=== PATIENT | male | born 1945 | race Caucasian/White ===

== ENCOUNTER 2020-03-03 14:00 | Outpatient (CLI) | payer MEDICARE, OTHER, SELFPAY ==
--- NOTE | 2020-03-03 14:12 | XR_ITS ---
WS: [id number] KNEE LEFT TECHNIQUE: 3 views of the left knee CLINICAL INFORMATION: LEFT KNEE SPRAIN COMPARISON: None. FINDINGS: Mild degenerative arthritis left knee. Mild medial and lateral compartment narrowing. Hypertrophic pa tella. Moderate narrowing patellofemoral articulation. Mild soft tissue edema. XR/XR knee LT 3V* [id number] IMPRESSION: Mild tricompartmental arthritis.
== END 2020-03-03 14:01 | disposition home or self-care (01) ==
LOC: RADWPI 14:10
PROVIDERS: PCP Family Medicine; Visit Provider Family Medicine
DX: S83.92XA Sprain of unspecified site of left knee, initial encounter (principal); X58.XXXA Exposure to other specified factors, initial encounter; M13.862 Other specified arthritis, left knee
CPT/HCPCS: 73562

== ENCOUNTER 2021-10-08 16:57 | Emergency (ER) | payer MEDICARE, OTHER, SELFPAY ==
[2021-10-08 17:10] VITALS: BP 162/81; PULSE 92; RESP 16; TEMP 36.8; O2SAT 97; BMI 29.4
--- NOTE | 2021-10-08 17:16 | ED_ITS ---
HPI - Extremity Problem General: Chief complaint: Extremity Problem,Nontraumatic Stated complaint: possible spider bite Time Seen by Provider: 10/08/21 17:16 History of Present Illness: HPI Narrative: 76-year-old male patient comes in today for concerns of redness and swelling to the left elbow. Patient reports yesterday he had significant pain and discomfort to the elbow area. Today he has more swelling and redness surrounding it. Patient first thought he may have had a spider bite. Patient does have a history of gout. Patient denies diabetes. Patient appears well. Patient appears in mild pain. Review of Systems General: Reports: 10 or more systems reviewed and unremarkable except in HPI and below Musc: Reports: other (Left elbow redness and tenderness.) Physical Exam Const: COMMON NORMALS: no acute distress and patient oriented x3 GENERAL APPEARANCE: cooperative HENMT: COMMON NORMALS: normocephalic and Normal external nose present HEAD & SCALP: normal to inspection and normocephalic NOSE: Normal external nose present MOUTH: Normal oral and palatal mucosa present Eye: GENERAL EYE: appearance normal, both eyes and all related structures Neck/C-Spine: COMMON NORMALS: full ROM Lymph: LYMPHATIC: no lymphadenopathy noted Chest: COMMONS NORMALS: normal inspection of the chest Resp: COMMON NORMALS: normal respiratory effort EFFORT & INSPECTION: Yes able to speak in complete sentences Cardio: COMMON NORMALS: regular rate and regular rhythm RATE: regular rate RHYTHM: regular rhythm GI: COMMON NORMALS: non-tender Extremity: NARRATIVE EXTREMITY EXAM: Redness noted to the left elbow with minimal to no induration. Area is approximately 10 cm circular. Patient has g ood range of motion of the elbow. Redness is not encircled the whole elbow. Distal pulses and sensations are intact. Patient does have some fluid to the olecranon bursa. Neuro: COMMON NORMALS: patient oriented x3 and moves all extremities Psych: COMMON NORMALS: mental status grossly normal and cooperative Skin: COMMON NORMALS: no rashes or lesions noted GENERAL SKIN EXAM: no rashes or lesions noted Course Vital Signs: Vital signs: Vital Signs Temperature 98.3 F 10/08/21 17:10 Pulse Rate 92 10/08/21 17:18 Respiratory Rate 16 10/08/21 17:18 Blood Pressure 162/81 10/08/21 17:18 Pulse Oximetry 97 10/08/21 17:18 MDM - Extremity (Nontraumatic) MDM Narrative: Medical decision making narrative: Patient comes in today for complaints of redness and swelling to the left elbow. Patient did report some chills. Patient states that the symptoms were more painful yesterday but today he has noticed some more swelling and redness. Patient has good range of motion of the elbow. Distal pulses and sensation are intact without any signs of swelling distally. Differential diagnosis includes not limited to cellulitis, olecranon bursitis, gout. I think we should go ahead and treat the patient for cellulitis we will give him a dose of ceftriaxone IM and then 10 mg of Decadron to help with pain and inflammation. I have a suspicion for gout but I am concerned due to patient's chills and suspicion for infectious origin. I will go ahead and cover with colchicine burst of 1.8 mg today and patient may repeat it in 3 days as needed. Patient was instructed to hold his allopurinol for 3 days. Patient will be continued on cephalexin 500 mg 3 times a day for 7 days, and naproxen 500 twice a day for 7 days. Patient reported understanding of care plan and need for follow-up or return to the ER for worsening symptoms such as inability to move the joint, fever greater than 100.4, or new concerns. Discharge Plan Discharge Patient Disposition: Home Clinical Impression: Cellulitis Qualifiers: Site of cellulitis: extremity Site of cellulitis of extremity: upper extremity Laterality: left Qualified Code(s): L03.114 - Cellulitis of left upper limb Condition: Stable Prescriptions: New colchicine 0.6 mg tablet 1.8 mg PO ONCE Qty: 6 RF: 0 cephalexin 500 mg capsule 500 mg PO TID 7 Days Qty: 21 RF: 0 naproxen 500 mg tablet 500 mg PO BID Qty: 14 RF: 0 Discharge Orders: Discharge ED (Routine); Ordered 10/08/21 Ordered By: Kai Mcdonough Referrals: Jhonatan Hodge MD [Primary Care Provider] - Discharge Diet: Usual diet Discharge Activity: Increase activity as tolerated Patient Instructions: Cellulitis (ED), Opioid Safety Activity Restrictions/Additional Instructions: I am treating you for cellulitis of the elbow. This is caused by bacteria getting into the skin tissue causing redness and inflammation because of infection in the dermis. I am also concerned there may be a flare of gout, due to your history. I recommend holding allopurinol for 3 days. Take the colchicine 2 tablets when you have the prescription filled and then repeat 1 tablet an hour. You may repeat this dosing in 3 days if needed. Use the naproxen 500 mg twice a day for the next 7 days to help with pain and inflammation. Continue with cephalexin 500 mg, antibiotic, 3 times daily for the next 7 days. Make sure to drink plenty of water. Monitor site for worsening symptoms such as increased pain with joint movement, increased redness surrounding the joint, and fever getting greater than 100.4. Follow-up with primary care in 3 days for recheck. Return to the ER for worsening symptoms. I expect to see considerable improvement within the next 2 to 3 days. Coding Level of Care Code ED Corn Shucker for Amairani Fletcher
[2021-10-08 17:18] VITALS: BP 162/81; PULSE 92; RESP 16; O2SAT 97
[2021-10-08] MEDS: dexamethasone 10 mg/mL INJ IM (17:35)
[2021-10-08] MEDS: cefTRIAXone 1,000 MG in lidocaine 1% 2.1 ML 2.3 MG IM (17:39)
== END 2021-10-08 17:44 | disposition home or self-care (01) ==
PROVIDERS: Emergency Provider Nurse Practitioner Family; PCP Family Medicine
DX: L03.114 Cellulitis of left upper limb (principal)
CPT/HCPCS: 96372; 99283; J0696; J1100

== ENCOUNTER → 2022-05-10 16:25 | Outpatient (BNVA) | payer MEDICARE, OTHER, SELFPAY | PROVIDERS: PCP Family Medicine; Visit Provider Family Medicine | DX: R39.15 Urgency of urination (principal); Z00.00 Encounter for general adult medical examination without abnormal findings; M10.9 Gout, unspecified; N45.1 Epididymitis | CPT/HCPCS: 80053; 80061; 84153; 84550; 85025 ==

== ENCOUNTER → 2022-10-22 08:15 | Outpatient (BNVA) | payer MEDICARE, OTHER, SELFPAY | PROVIDERS: PCP Family Medicine; Visit Provider Family Medicine | DX: Z00.00 Encounter for general adult medical examination without abnormal findings (principal); E78.5 Hyperlipidemia, unspecified; N45.1 Epididymitis | CPT/HCPCS: 80053; 80061; 85025; G0103 ==

== ENCOUNTER → 2023-04-30 10:22 | Outpatient (BNVA) | payer MEDICARE, OTHER, SELFPAY | PROVIDERS: PCP Family Medicine; Visit Provider Family Medicine | DX: Z00.00 Encounter for general adult medical examination without abnormal findings (principal); R97.20 Elevated prostate specific antigen [PSA] | CPT/HCPCS: 84153 ==

== ENCOUNTER → 2023-07-11 11:27 | Outpatient (BNVA) | payer MEDICARE, OTHER, SELFPAY | PROVIDERS: PCP Family Medicine; Visit Provider Family Medicine | DX: R30.0 Dysuria (principal) | CPT/HCPCS: 81000 ==

== ENCOUNTER → 2023-07-31 16:21 | Outpatient (BNVA) | payer MEDICARE, OTHER, SELFPAY | PROVIDERS: PCP Family Medicine; Visit Provider Clinical Nurse Specialist Adult Health | DX: R82.71 Bacteriuria (principal); N40.0 Benign prostatic hyperplasia without lower urinary tract symptoms; R10.9 Unspecified abdominal pain | CPT/HCPCS: 81003; 87086 ==

== ENCOUNTER → 2023-10-21 09:05 | Outpatient (BNVA) | payer MEDICARE, OTHER, SELFPAY | PROVIDERS: PCP Family Medicine; Visit Provider Family Medicine | DX: N40.0 Benign prostatic hyperplasia without lower urinary tract symptoms (principal); R97.20 Elevated prostate specific antigen [PSA]; M10.9 Gout, unspecified; R73.9 Hyperglycemia, unspecified | CPT/HCPCS: 80053; 80061; 83036; 84153; 84550; 85025 ==

== ENCOUNTER → 2024-04-21 13:12 | Outpatient (BNVA) | payer MEDICARE, OTHER, SELFPAY | PROVIDERS: PCP Family Medicine; Visit Provider Family Medicine | DX: R97.20 Elevated prostate specific antigen [PSA] (principal) | CPT/HCPCS: 84153 ==

== ENCOUNTER 2024-05-06 08:04 | Outpatient (RCR) | payer MEDICARE, OTHER, SELFPAY | END 2024-05-17 23:59 | disposition home or self-care (01) | LOC: SPT 08:04 | PROVIDERS: PCP Family Medicine; Visit Provider Family Medicine | DX: M54.30 Sciatica, unspecified side (principal) | CPT/HCPCS: 97110 ==

== ENCOUNTER 2024-05-18 06:00 | Outpatient (RCR) | payer MEDICARE, OTHER, SELFPAY | END 2024-06-17 23:59 | disposition home or self-care (01) | LOC: SPT 06:00 | PROVIDERS: PCP Family Medicine; Visit Provider Family Medicine | DX: M54.30 Sciatica, unspecified side (principal) | CPT/HCPCS: 97110 ==

== ENCOUNTER 2024-06-18 06:00 | Outpatient (RCR) | payer MEDICARE, OTHER, SELFPAY | END 2024-07-18 23:59 | disposition home or self-care (01) | LOC: SPT 06:00 | PROVIDERS: PCP Family Medicine; Visit Provider Family Medicine | DX: M54.30 Sciatica, unspecified side (principal) | CPT/HCPCS: 97110 ==

== ENCOUNTER 2024-07-14 07:31 | Outpatient (CLI) | payer MEDICARE, OTHER, SELFPAY ==
--- NOTE | 2024-07-14 07:37 | XR_ITS ---
WS: [id number] Exam: XR pelvis 1-2V* [id number] Date/Time of Exam: 07/14/2024 7:46 AM Reason For Exam: back pain No fracture noted. Moderate DJD of both hips. Degenerative disc narrowing at L5-S1 with right-sided b ridging osteophytes. Normal soft tissues. XR/XR pelvis 1-2V* [id number] IMPRESSION: 1. Moderately advanced degenerative changes at the lumbosacral junction as note d above. Bilateral hip DJD. 2. No other significant finding.
--- NOTE | 2024-07-14 07:37 | XR_ITS ---
WS: [id number] Exam: XR hip RT 2-3V wo/w pel* [id number] Date/Time of Exam: 07/14/2024 7:45 AM Reason For Exam: hip pain No fracture or dislocation. Moderate degenerative change of the joint compartment. Normal soft tissue s. XR/XR hip RT 2-3V wo/w pel* [id number] IMPRESSION: 1. Moderate degenerative change. No fracture.
--- NOTE | 2024-07-14 07:37 | XR_ITS ---
WS: [id number] Exam: XR lumbar spine 2-3V* [id number] Date/Time of Exam: 07/14/2024 7:46 AM Reason For Exam: back pain No acute fracture noted. 1 cm anterolisthesis of L5 on S1. There is appears to be due to degenerative facet disease and possibly an L5 pars defect. Large osteophytes noted at L4-5 and L5-S1. Facet arthr opathy at all levels. Degenerative vacuum discs are noted at L4-5 and L5-S1. Very slight dextroscolio sis. XR/XR lumbar spine 2-3V* [id number] IMPRESSION: 1. 1 cm anterolisthesis of L5 on S1. This appears to be secondary to facet dege neration however an L5 pars defect may also be present. Oblique views and/or MR I of the lumbar spine should be considered for further work-up. 2. Advanced degenerative changes and spondylosis.
== END 2024-07-14 07:32 | disposition home or self-care (01) ==
PROVIDERS: PCP Family Medicine; Visit Provider Family Medicine
DX: M51.37 Other intervertebral disc degeneration, lumbosacral region (principal); M16.0 Bilateral primary osteoarthritis of hip; M47.816 Spondylosis without myelopathy or radiculopathy, lumbar region
CPT/HCPCS: 72100; 72170; 73502

== ENCOUNTER 2024-08-19 08:21 | Outpatient (CLI) | payer MEDICARE, OTHER, SELFPAY ==
--- NOTE | 2024-08-19 08:45 | MR_ITS ---
WS: [id number] MRI LUMBAR SPINE NONCONTRAST TECHNIQUE: Sagittal T1, T2 and STIR imaging. Axial T1 and T2 imaging. CLINICAL INFORMATION: chronic back pain COMPARISON: None. 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 Mild lumbar curve. No acute lili anderson fractures. L1-L2: Mild facet arthropathy. Spinal canal and foramen are patent. L2-L3: Mild annular bulging. Mild central canal stenosis. Impingement on the traversing LEFT L3 nerve root. Mild facet arthropathy. Mild bilateral foraminal narrowing. L3-L4: Mild annular bulging. Moderate central canal stenosis. Impingement on the RIGHT greater than L EFT L4 nerve roots. Moderate facet arthropathy. Mild bilateral foraminal narrowing. L4-L5: Mild annular bulging. Slight effacement of the ventral thecal sac. Slight impingement traversi ng L5 nerve roots. Moderate facet arthropathy. Moderate RIGHT foraminal narrowing. Mild LEFT foramina l narrowing. L5-S1: Chronic spondylolysis with grade 1 anterolisthesis. Moderate to severe RIGHT foraminal narrowi ng with impingement on the exiting RIGHT L5 nerve root. LEFT foramen is patent. Mild facet arthropath y. Spinal canal is patent. Visualized pelvic bony structures: Normal. Paravertebral soft tissues: Normal. Markedly enlarged prostate measuring 6.4 x 5.7 cm. Recommend correlation PSA. MR/MR lumbar spine wo con* [id number] IMPRESSION: 1. 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 Moderate to severe RIGHT foraminal narrowing L5-S1 impinges the exiting RIG HT L5 nerve root. 3. Mild central canal stenosis L2-3 with narrowing of the LEFT subarticular re cess. 4. Moderate central canal stenosis L3-4 with impingement traversing L4 nerve r oots. 5. Moderate RIGHT L4-5 foraminal narrowing. 6. Markedly enlarged prostate measuring 6.4 x 5.7 cm. Recommend correlation PS Maykel.
== END 2024-08-19 08:22 | disposition home or self-care (01) ==
LOC: RAD 08:22
PROVIDERS: PCP Family Medicine; Visit Provider Family Medicine
DX: M43.16 Spondylolisthesis, lumbar region (principal); M99.63 Osseous and subluxation stenosis of intervertebral foramina of lumbar region; N40.0 Benign prostatic hyperplasia without lower urinary tract symptoms; M47.896 Other spondylosis, lumbar region; M54.30 Sciatica, unspecified side
CPT/HCPCS: 72148

== ENCOUNTER → 2024-11-09 09:23 | Outpatient (BNVA) | payer MEDICARE, OTHER, SELFPAY | PROVIDERS: PCP Family Medicine; Visit Provider Family Medicine | DX: Z00.00 Encounter for general adult medical examination without abnormal findings (principal); M54.9 Dorsalgia, unspecified; G89.29 Other chronic pain; R97.20 Elevated prostate specific antigen [PSA]; E78.5 Hyperlipidemia, unspecified | CPT/HCPCS: 80053; 80061; 84153; 84550; 85025 ==